=== PATIENT | male | born 1975 | race Caucasian/White ===

== ENCOUNTER 2024-01-28 11:00 | Outpatient (RCR) | payer OTHER, SELFPAY ==
[2023-12-19 10:06] LABS: Creatinine* 0.7 mg/dL (0.5-1.5); Estimated Glomerular Filt Rate 113 ml/min
--- NOTE | 2023-12-19 15:53 | ONC.NURNOTE ---
Pt here today for picc line blood draw for creatinine. When pt arrived pt thought his appt was for a wound vac drsg change. Pt concerned because wound vac beeping that the canister needs to be changed. Explained to pt that we do not change wound vacs in our dept. Staff Physical Therapist called the wound center at the [facility] to see if pt was scheduled in their dept and they stated he was not their patient. Staff Physical Therapist also asked if they had any replacement canister and unfortunately they do not have them. Staff Physical Therapist also contacted [facility] to see if the clinic has replacement canisters, unfortunately, they also do not have these canisters. Staff Physical Therapist called Nahun RN at [facility] home infusion therapy with concerns of no follow up with his wound vac. She was able to give pt the number for the ortho clinic [phone]. Pt instructed to call clinic [facility] to get in to their clinic. Pt verbalized understanding of plan of care.
[2023-12-24 16:00] VITALS: PULSE 77; RESP 16; TEMP 36.1; O2SAT 97
[2023-12-24 16:05] LABS: Basophils Absolute Auto 0.03 K/uL (0.00-0.30); Basophils Percent Auto 0.4 % (0.0-3.0); Eosinophils Percent Auto 8.4 % (0.0-7.0); Hematocrit 32.3 % (37.0-53.0); Hemoglobin* 10.5 gm/dL (13.5-17.5); Immature Granulocytes Abs Auto 0.02 K/uL (0.00-0.30); Immature Granulocytes Pct Auto 0.3 %; Lymphocytes Absolute Auto 1.89 K/uL (0.90-2.90); Lymphocytes Percent Auto 26.5 % (20-44); Mean Corpuscular HGB Conc 33 gm/dL (32-36); Mean Corpuscular Hemoglobin 31 pg (26-34); Mean Corpuscular Volume 97 fL (80-100); Monocytes Percent Auto 8.8 % (0.0-11.0); Neutrophils Absolute Auto 3.95 K/uL (1.7-7.0); Neutrophils Percent Auto 55.6 % (42.0-72.0); Platelet Count* 296 K/uL (140-440); RDW Coefficient of Variation % 13.2 % (11.5-15.5); Red Blood Count 3.34 m/uL (4.30-5.90); White Blood Count* 7.12 K/uL (4.50-11.00)
[2023-12-24 16:07] LABS: Slide Review Reflex No
[2023-12-24 16:17] LABS: Chloride* 100 mmol/L (96-114)
[2023-12-24 16:18] LABS: Albumin* 3.8 g/dL (3.3-5.0); Potassium* 4.1 mmol/L (3.6-5.1); Sodium* 138 mmol/L (135-149)
[2023-12-24 16:20] LABS: Bilirubin Total* 0.2 mg/dL (0.1-1.5); Creatinine* 0.9 mg/dL (0.5-1.5); Estimated Glomerular Filt Rate 105 ml/min
[2023-12-24 16:21] LABS: Alanine Aminotransferase* 36 U/L (4-50); Alkaline Phosphatase* 91 U/L (40-150); Anion Gap 7 mEq/L (7-15); Aspartate Amino Transferase* 28 U/L (12-35); Blood Urea Nitrogen* 17 mg/dL (5-24); Calcium* 8.6 mg/dL (8.4-10.6); Carbon Dioxide* 31 mmol/L (20-32); Glucose* 116 mg/dL (60-115); Total Protein* 7.1 g/dL (6.0-8.3)
[2023-12-24] MEDS: ALTEPLASE 2 MG INJ IVF (16:21)
--- NOTE | 2023-12-24 16:44 | ONC.NURNOTE ---
Pt states had a 102 temp and chills for 3 hrs yesturday . which resolved. wbc wnl today. unable to get blood return from Picc. Labs drawn periferally. Picc did flush well. sl swollen at picc entrance site when doing dressing change and old blood on disc at site. pt states site sl. painful. no reddness or drainage at site. call placed to Inf control Dr. Mims [phone] at 1600. no return call. labs faxed to [facility] at [phone].
--- NOTE | 2023-12-24 17:03 | ONC.NURNOTE ---
Dr Farris called back and aware of pts temp and picc site. He will be contacting pt. nany. 2x week. Pt aware and will go to ER if temp and chills return. vs 97-125/84-77-16 . 97% ra
[2023-12-25 09:05] LABS: C Reactive Protein* 1.5 mg/dL (0.5-1.0)
--- NOTE | 2023-12-25 15:46 | ONC.NURNOTE ---
Contacted [facility] to get new lab orders for clarification. new order was sent over and cosigned by the advanced practice nurse. Called patient to set up future appointments. Patient will adjust his Vancomycin schedule on Mondays to 0500 and 1700 instead of 0600 and 1800 so we can get the vanvo trough as close to 1 hour prior as we can.
[2023-12-27 14:54] LABS: Chloride* 104 mmol/L (96-114); Sodium* 140 mmol/L (135-149)
[2023-12-27 14:55] LABS: Potassium* 3.5 mmol/L (3.6-5.1)
[2023-12-27 14:57] LABS: Creatinine* 0.8 mg/dL (0.5-1.5); Estimated Glomerular Filt Rate 108 ml/min
[2023-12-27 14:58] LABS: Anion Gap 7 mEq/L (7-15); Blood Urea Nitrogen* 21 mg/dL (5-24); Calcium* 8.3 mg/dL (8.4-10.6); Carbon Dioxide* 29 mmol/L (20-32); Glucose* 132 mg/dL (60-115)
[2023-12-31 15:30] VITALS: BP 137/87; PULSE 92; RESP 16; TEMP 37.2; O2SAT 96
[2023-12-31] MEDS: SODIUM CHLORIDE 0.9 % (FLUSH) 10 ML SYRINGE IVF (15:53)
[2023-12-31] MEDS: ALTEPLASE 2 MG INJ IVF (15:53)
--- NOTE | 2023-12-31 15:58 | ONC.NURNOTE ---
Addendum entered by Carol Veliz RN 12/31/23 16:30: Picc flushed well with good blood return after cathflow Original Note: no redness, swelling or pain at the picc line side. At the top of the dressing almost scabbed over irritation to his skin. no redness of skin around it or drainage.
[2023-12-31 16:44] LABS: Basophils Absolute Auto 0.07 K/uL (0.00-0.30); Basophils Percent Auto 1.2 % (0.0-3.0); Eosinophils Percent Auto 7.6 % (0.0-7.0); Hematocrit 32.5 % (37.0-53.0); Hemoglobin* 10.8 gm/dL (13.5-17.5); Lymphocytes Percent Auto 30.5 % (20-44); Mean Corpuscular HGB Conc 33 gm/dL (32-36); Mean Corpuscular Hemoglobin 32 pg (26-34); Mean Corpuscular Volume 96 fL (80-100); Monocytes Percent Auto 9.3 % (0.0-11.0); Neutrophils Absolute Auto 3.03 K/uL (1.7-7.0); Neutrophils Percent Auto 51.4 % (42.0-72.0); Platelet Count* 224 K/uL (140-440); RDW Coefficient of Variation % 13.1 % (11.5-15.5)
[2023-12-31 16:47] LABS: Slide Review Reflex No
[2023-12-31 17:10] LABS: Albumin* 3.7 g/dL (3.3-5.0)
[2023-12-31 17:11] LABS: Chloride* 102 mmol/L (96-114); Potassium* 3.6 mmol/L (3.6-5.1); Sodium* 136 mmol/L (135-149)
[2023-12-31 17:13] LABS: Anion Gap 5 mEq/L (7-15); Aspartate Amino Transferase* 18 U/L (12-35); Bilirubin Total* 0.4 mg/dL (0.1-1.5); Carbon Dioxide* 29 mmol/L (20-32); Creatinine* 0.8 mg/dL (0.5-1.5); Estimated Glomerular Filt Rate 108 ml/min
[2023-12-31 17:14] LABS: Alanine Aminotransferase* 20 U/L (4-50); Alkaline Phosphatase* 108 U/L (40-150); Blood Urea Nitrogen* 14 mg/dL (5-24); Calcium* 8.8 mg/dL (8.4-10.6); Glucose* 103 mg/dL (60-115); Total Protein* 7.1 g/dL (6.0-8.3)
[2024-01-03 14:16] LABS: Chloride* 102 mmol/L (96-114); Potassium* 3.7 mmol/L (3.6-5.1); Sodium* 137 mmol/L (135-149)
[2024-01-03 14:18] LABS: Creatinine* 0.8 mg/dL (0.5-1.5); Estimated Glomerular Filt Rate 108 ml/min
[2024-01-03 14:19] LABS: Anion Gap 6 mEq/L (7-15); Blood Urea Nitrogen* 11 mg/dL (5-24); Calcium* 8.7 mg/dL (8.4-10.6); Carbon Dioxide* 29 mmol/L (20-32); Glucose* 121 mg/dL (60-115)
--- NOTE | 2024-01-03 15:42 | ONC.NURNOTE ---
Pt here for PICC blood draw. Pt mentioned he developed blisters from where the previous dressing was placed. Metal Tile Lather did replace dressing with an opsite and did a full dresssing change. Mepilex dressing applied to open blisters. Labs faxed to [facility].
--- NOTE | 2024-01-07 13:25 | PC.NURSE ---
Pt called today to cancel his appointment. Aldair states that yesterday while getting out of his car, his PICC line got caught and pulled out. He called his surgeon and was told to call infectious disease. He called ID and was told to go to ER. RN [facility] and it was determined that pt should to go the ER to have his site assessed. RN advised pt to bring his PICC line with. Pt has missed one Vancomycin dose and worries about missing another one tomorrow. Aldair has a virtual visit with his ID MD tomorrow morning. RN urged pt to call ID back to ask for direction re: missed dose, etc. Supportive listening provided. Asked pt to call back if/when he needs [facility] services again.
--- NOTE | 2024-01-08 11:22 | XR_ITS ---
Patient: MAURICE TAM Facility:?[facility] Patient ID:?[id number] Site Patient ID:?[id number]. Site :?[id number] Study:?XRay-Chest PORTABLE 1 VIEW-01/08/2024 2:31:32 PM Ordering Physician:ANDREWS GAVIN Final Report: INDICATION: Dyspnea. TECHNIQUE: Chest radiograph, 1 view. COMPARISON: None. FINDINGS: Line/devices: Left-sided PICC with tip terminating in the lower SVC, satisfactory position. Cardiovascular/Mediastinum: Normal heart size. Unremarkable. Lungs: Low lung volumes limit evaluation. Patchy ill-defined left infrahilar opacification. No focal consolidation. Linear band like opacification of the lungs bilaterally, likely subsegmental atelectasis. Airways: Trachea remains midline. Pleura: No pleural effusions or pneumothorax. Bones: No acute osseous abnormalities. Mild degeneration of the acromioclavicular joints bilaterally. Upper abdomen: Unremarkable. IMPRESSION: 1. Left-sided PICC terminating in satisfactory position in the lower SVC. 2. Low lung volumes limit evaluation. Patchy, ill-defined left infrahilar opacification may represent atelectasis versus developing pneumonia in the appropriate clinical setting. Dictated by Ciro Teresa MD @ 01/08/2024 2:56:13 PM Signed by:?Ciro Teresa MD @01/08/2024 2:56:13 PM (Electronic Signature)
[2024-01-08 13:15] VITALS: BP 119/83; PULSE 95; RESP 16; TEMP 36.6; O2SAT 98
[2024-01-08 13:23] VITALS: BP 141/85; PULSE 105; RESP 16; TEMP 36.9; O2SAT 93
[2024-01-08 14:23] LABS: Basophils Absolute Auto 0.04 K/uL (0.00-0.30); Basophils Percent Auto 0.8 % (0.0-3.0); Eosinophils Absolute Auto 0.25 K/uL (0.00-0.50); Eosinophils Percent Auto 4.8 % (0.0-7.0); Hematocrit 33.9 % (37.0-53.0); Hemoglobin* 11.5 gm/dL (13.5-17.5); Immature Granulocytes Abs Auto 0.01 K/uL (0.00-0.30); Immature Granulocytes Pct Auto 0.2 %; Lymphocytes Absolute Auto 1.47 K/uL (0.90-2.90); Lymphocytes Percent Auto 28.4 % (20-44); Mean Corpuscular HGB Conc 34 gm/dL (32-36); Mean Corpuscular Hemoglobin 32 pg (26-34); Mean Corpuscular Volume 93 fL (80-100); Monocytes Percent Auto 12.4 % (0.0-11.0); Neutrophils Absolute Auto 2.76 K/uL (1.7-7.0); Neutrophils Percent Auto 53.4 % (42.0-72.0); Platelet Count* 267 K/uL (140-440); RDW Coefficient of Variation % 12.7 % (11.5-15.5); Red Blood Count 3.65 m/uL (4.30-5.90); White Blood Count* 5.17 K/uL (4.50-11.00)
[2024-01-08 14:36] LABS: Slide Review Reflex No
[2024-01-08 14:49] LABS: Albumin* 3.8 g/dL (3.3-5.0); Chloride* 101 mmol/L (96-114); Sodium* 137 mmol/L (135-149)
[2024-01-08 14:50] LABS: Potassium* 3.3 mmol/L (3.6-5.1)
[2024-01-08 14:52] LABS: Bilirubin Total* 0.5 mg/dL (0.1-1.5); Creatinine* 0.9 mg/dL (0.5-1.5); Estimated Glomerular Filt Rate 105 ml/min
[2024-01-08 14:53] LABS: Alanine Aminotransferase* 29 U/L (4-50); Alkaline Phosphatase* 90 U/L (40-150); Anion Gap 4 mEq/L (7-15); Aspartate Amino Transferase* 28 U/L (12-35); Blood Urea Nitrogen* 12 mg/dL (5-24); Calcium* 8.6 mg/dL (8.4-10.6); Carbon Dioxide* 32 mmol/L (20-32); Glucose* 104 mg/dL (60-115)
[2024-01-08 14:56] LABS: C Reactive Protein* 1.4 mg/dL (0.5-1.0)
[2024-01-10 10:36] LABS: Chloride* 103 mmol/L (96-114); Potassium* 3.8 mmol/L (3.6-5.1); Sodium* 138 mmol/L (135-149)
[2024-01-10 10:38] LABS: Creatinine* 0.7 mg/dL (0.5-1.5); Estimated Glomerular Filt Rate 113 ml/min
[2024-01-10 10:39] LABS: Anion Gap 5 mEq/L (7-15); Blood Urea Nitrogen* 13 mg/dL (5-24); Calcium* 8.5 mg/dL (8.4-10.6); Carbon Dioxide* 30 mmol/L (20-32); Glucose* 91 mg/dL (60-115)
--- NOTE | 2024-01-10 15:08 | ONC.NURNOTE ---
this weeks lab results faxed to [facility] at [phone].
[2024-01-14] MEDS: ALTEPLASE 2 MG INJ IVF (15:26)
[2024-01-14 16:08] LABS: Basophils Absolute Auto 0.03 K/uL (0.00-0.30); Basophils Percent Auto 0.6 % (0.0-3.0); Eosinophils Percent Auto 8.7 % (0.0-7.0); Hematocrit 35.3 % (37.0-53.0); Hemoglobin* 11.8 gm/dL (13.5-17.5); Immature Granulocytes Abs Auto 0.01 K/uL (0.00-0.30); Immature Granulocytes Pct Auto 0.2 %; Lymphocytes Absolute Auto 1.88 K/uL (0.90-2.90); Mean Corpuscular HGB Conc 33 gm/dL (32-36); Mean Corpuscular Hemoglobin 31 pg (26-34); Mean Corpuscular Volume 93 fL (80-100); Neutrophils Absolute Auto 2.21 K/uL (1.7-7.0); Neutrophils Percent Auto 43.5 % (42.0-72.0); Platelet Count* 248 K/uL (140-440); RDW Coefficient of Variation % 12.5 % (11.5-15.5); Red Blood Count 3.79 m/uL (4.30-5.90); White Blood Count* 5.08 K/uL (4.50-11.00)
[2024-01-14 16:14] LABS: Slide Review Reflex No
[2024-01-14 16:46] LABS: Albumin* 4.1 g/dL (3.3-5.0); Chloride* 105 mmol/L (96-114); Potassium* 3.6 mmol/L (3.6-5.1); Sodium* 138 mmol/L (135-149)
[2024-01-14 16:48] LABS: Creatinine* 0.8 mg/dL (0.5-1.5); Estimated Glomerular Filt Rate 108 ml/min
[2024-01-14 16:49] LABS: Alanine Aminotransferase* 22 U/L (4-50); Alkaline Phosphatase* 89 U/L (40-150); Anion Gap 5 mEq/L (7-15); Aspartate Amino Transferase* 25 U/L (12-35); Bilirubin Total* 0.4 mg/dL (0.1-1.5); Blood Urea Nitrogen* 16 mg/dL (5-24); Carbon Dioxide* 28 mmol/L (20-32); Glucose* 108 mg/dL (60-115); Total Protein* 7.4 g/dL (6.0-8.3)
[2024-01-14 16:50] LABS: Calcium* 8.7 mg/dL (8.4-10.6)
[2024-01-14 16:52] LABS: C Reactive Protein* 1.8 mg/dL (0.5-1.0)
[2024-01-18 10:11] VITALS: BP 140/80; PULSE 94; RESP 18; TEMP 36.7; O2SAT 97
[2024-01-18 10:44] LABS: Chloride* 106 mmol/L (96-114)
[2024-01-18 10:45] LABS: Potassium* 3.3 mmol/L (3.6-5.1); Sodium* 138 mmol/L (135-149)
[2024-01-18 10:47] LABS: Creatinine* 0.8 mg/dL (0.5-1.5); Estimated Glomerular Filt Rate 108 ml/min
[2024-01-18 10:48] LABS: Anion Gap 4 mEq/L (7-15); Blood Urea Nitrogen* 11 mg/dL (5-24); Calcium* 8.2 mg/dL (8.4-10.6); Carbon Dioxide* 28 mmol/L (20-32); Glucose* 111 mg/dL (60-115)
[2024-01-25 12:54] VITALS: BP 142/85; PULSE 99; RESP 18; TEMP 37.3; O2SAT 98
[2024-01-25 13:39] LABS: Basophils Absolute Auto 0.03 K/uL (0.00-0.30); Basophils Percent Auto 0.4 % (0.0-3.0); Eosinophils Absolute Auto 0.21 K/uL (0.00-0.50); Eosinophils Percent Auto 3.1 % (0.0-7.0); Hematocrit 36.3 % (37.0-53.0); Hemoglobin* 11.9 gm/dL (13.5-17.5); Immature Granulocytes Abs Auto 0.01 K/uL (0.00-0.30); Immature Granulocytes Pct Auto 0.1 %; Lymphocytes Absolute Auto 1.76 K/uL (0.90-2.90); Lymphocytes Percent Auto 26.2 % (20-44); Mean Corpuscular HGB Conc 33 gm/dL (32-36); Mean Corpuscular Hemoglobin 30 pg (26-34); Mean Corpuscular Volume 91 fL (80-100); Monocytes Percent Auto 8.5 % (0.0-11.0); Neutrophils Absolute Auto 4.14 K/uL (1.7-7.0); Neutrophils Percent Auto 61.7 % (42.0-72.0); Platelet Count* 265 K/uL (140-440); RDW Coefficient of Variation % 12.3 % (11.5-15.5); Red Blood Count 3.97 m/uL (4.30-5.90); White Blood Count* 6.72 K/uL (4.50-11.00)
[2024-01-25 13:43] LABS: Slide Review Reflex No
[2024-01-25 13:54] LABS: Chloride* 102 mmol/L (96-114)
[2024-01-25 13:55] LABS: Potassium* 3.6 mmol/L (3.6-5.1); Sodium* 139 mmol/L (135-149)
[2024-01-25 13:57] LABS: Bilirubin Total* 0.5 mg/dL (0.1-1.5); Creatinine* 0.9 mg/dL (0.5-1.5); Estimated Glomerular Filt Rate 105 ml/min
[2024-01-25 13:58] LABS: Alanine Aminotransferase* 19 U/L (4-50); Alkaline Phosphatase* 76 U/L (40-150); Anion Gap 4 mEq/L (7-15); Aspartate Amino Transferase* 22 U/L (12-35); Blood Urea Nitrogen* 13 mg/dL (5-24); Calcium* 8.5 mg/dL (8.4-10.6); Carbon Dioxide* 33 mmol/L (20-32); Glucose* 98 mg/dL (60-115); Total Protein* 7.3 g/dL (6.0-8.3)
[2024-01-25 14:01] LABS: C Reactive Protein* 1.7 mg/dL (0.5-1.0)
[2024-01-28 10:41] VITALS: BP 131/90; PULSE 88; RESP 18; TEMP 36.5; O2SAT 94
== END 2024-06-16 23:59 | disposition home or self-care (01) ==
LOC: CCIC 11:00
PROVIDERS: Internal Medicine Hematology & Oncology; Visit Provider Clinical Nurse Specialist
DX: T84.52XD Infection and inflammatory reaction due to internal left hip prosthesis, subsequent encounter (principal); Z95.828 Presence of other vascular implants and grafts
CPT/HCPCS: 36415; 36573; 36589; 36592; 80048; 80053; 80202; 82565; 85025; 86140; 86141; 96374; 96376; 99211; A4221; C1751; J2997